=== PATIENT | female | born 1960 | race Caucasian/White ===

== ENCOUNTER 2017-10-18 10:08 | Day surgery (SDC) | payer OTHER ==
[~2017-10-18] VITALS: Ht 165.1 cm; Wt 79.0 kg
[~2017-10-18 10:08] MED LIST: BUSP5 PO; Cymbalta20 MG; DEXA4 PO; GABA300 PO; LIDOCAINE5 GM TP; LORA.5 PO; OMEP40CA12 PO; OXYC1TAB11; PROM25 PO; Senna S Tablet1 EACH PO
[2017-10-18] MEDS ORDERED: CBD OILS (10:22)
== END 2017-10-18 11:55 | disposition home or self-care (01) ==
LOC: ORSCSDS 10:08
PROVIDERS: Internal Medicine Gastroenterology
PROC: 0DJD8ZZ Inspection of Lower Intestinal Tract, Via Natural or Artificial Opening Endoscopic (ICD-10-PCS; principal; 2017-10-18 11:15)
DX: Z12.11 Encounter for screening for malignant neoplasm of colon (principal); K64.8 Other hemorrhoids; K57.30 Diverticulosis of large intestine without perforation or abscess without bleeding; I10 Essential (primary) hypertension; E78.5 Hyperlipidemia, unspecified; Z79.899 Other long term (current) drug therapy

== ENCOUNTER → 2018-09-27 | Outpatient (CLI) | payer OTHER ==
[~2018-09-27] MED LIST changes: +CBD OILS
[2018-09-27 12:03] LABS: Source, Urine Clean Catch
[2018-09-27 12:56] LABS: Bilirubin, Urine Neg (Neg); Blood, Urine 1+ (Neg); Glucose Qualitative, Urine Neg (Neg); Ketones, Urine Neg (Neg); Leukocyte Esterase, Urine Neg (Neg); Nitrite, Urine Neg (Neg); Protein, Urine Neg (Neg); Urobilinogen, Urine NORM (Normal)
[2018-09-27 13:46] LABS: Appearance, Urine Hazy (Clear); Color, Urine Yellow (P-Yellow)
[2018-09-27 13:48] LABS: Bacteria Rare /hpf; Red Blood Cells, Urine 0-2 /hpf (0-2); Squamous Epithelial Cells Rare /hpf (Few); White Blood Cells, Urine Not Seen /hpf (0-5)
== END | disposition home or self-care (01) ==
LOC: LAB SHORT 12:02 → LAB 12:02
PROVIDERS: Internal Medicine Hematology & Oncology
DX: C50.919 Malignant neoplasm of unspecified site of unspecified female breast (principal); C77.3 Secondary and unspecified malignant neoplasm of axilla and upper limb lymph nodes; C78.01 Secondary malignant neoplasm of right lung; C78.02 Secondary malignant neoplasm of left lung
CPT/HCPCS: 81001

== ENCOUNTER 2019-01-22 08:08 | Inpatient (IN) | payer OTHER ==
[~2019-01-22] VITALS: Ht 165.1 cm; Wt 88.2 kg
[2019-01-22] MEDS ORDERED: Amlodipine Bes2.5 MG PO (08:29)
[2019-01-22] MEDS ORDERED: ALBU90OI6 INH (08:29)
[2019-01-22] MEDS ORDERED: IBRANCE125 MG PO (08:29)
[2019-01-22] MEDS ORDERED: OMEPRAZOLE DR 20 MG (08:29)
[2019-01-22] MEDS ORDERED: VITAMIN C500 MG PO (08:30)
[2019-01-22] MEDS ORDERED: LO-DOSE ASPIRIN81 MG PO (08:30)
[2019-01-22] MEDS ORDERED: STOOL SOFTENER100 MG (08:31)
[2019-01-22] MEDS ORDERED: LETR2.5 PO (08:31)
[2019-01-22 09:30] LABS: Hematocrit 36.4 % (33.0-51.0); Hemoglobin 12.7 g/dL (11.5-16.0); Mean Corpuscular HGB 36.4 pg (26.0-34.0); Mean Corpuscular HGB Conc 34.9 g/dL (31.5-36.5); Mean Corpuscular Volume 104 fL (80-100); Mean Platelet Volume 8.6 fL (9.1-12.4); Platelet Count 250 K/mm3 (150-400); RDW Coefficient Variation 14.9 % (11.7-14.2); RDW Standard Deviation 56.9 fL (35.1-46.3); Red Blood Cell Count 3.49 M/mm3 (3.80-5.20); White Blood Cell Count 5.87 K/mm3 (4.00-11.30)
[2019-01-22 09:44] LABS: Alanine Aminotransfer (ALT/SGP 31 U/L (12-78); Albumin, Blood 3.6 g/dL (3.4-5.0); Albumin/Globulin Ratio 1.1 (0.8-1.8); Alk Phos 58 U/L (50-136); Anion Gap 8 mmol/L (6-16); Aspartate Aminotrans (AST/SGOT 32 U/L (12-37); Bilirubin, Total 1.1 mg/dL (0.1-1.0); Blood Urea Nitrogen 20 mg/dL (8-24); Bun/Creatinine Ratio 21.9 (12.0-20.0); CO2, Blood 26 mmol/L (21-32); Calcium, Blood 8.3 mg/dL (8.5-10.1); Chloride, Blood 101 mmol/L (98-108); Creatinine, Blood 0.92 mg/dL (0.40-1.00); Globulin, Blood 3.3 g/dL (2.2-4.0); Glomerular Filtration Rate >60 (60-); Glucose, Blood 145 mg/dL (70-99); Potassium, Blood 4.1 mmol/L (3.5-5.5); Sodium, Blood 135 mmol/L (136-145); Total Protein, Blood 6.9 g/dL (6.4-8.2)
[2019-01-22 09:53] LABS: BAND PERCENT MAN 5 % (0-8); BASOPHILS PERCENT MAN 0 % (0-2); EOSINOPHILS PERCENT MAN 0 % (0-6); LYMPHOCYTES ABSOLUTE MAN 0.46 K/mm3 (0.84-5.20); LYMPHOCYTES PERCENT MAN 8 % (21-46); MONOCYTES ABSOLUTE MAN 0.23 K/mm3 (0.16-1.47); MONOCYTES PERCENT MAN 4 % (4-13); NEUTROPHILS ABSOLUTE MAN 5.16 K/mm3 (1.96-9.15); SEG NEUTROPHILS PERCENT MAN 83 % (41-73); TOTAL CELLS COUNTED 100
[2019-01-22] MEDS ORDERED: DOCU100 PO (13:18)
[2019-01-22] MEDS ORDERED: Vitamin D2000 UNIT PO (13:19)
[2019-01-22] MEDS ORDERED: OMEPRAZOLE20 MG PO (13:19)
[2019-01-22] MEDS ORDERED: Norco 5-325 Ta1 EACH PO (13:20)
[2019-01-22] MEDS ORDERED: C Complex1000 MG PO (13:21)
--- NOTE | 2019-01-22 16:10 | NUR ---
SHIFT SUMMARY ED ADMIT THIS AFTERNOON. PATIENT DENIES PAIN, NAUSEA, AND SHORTNESS OF BREATH. MELANIE REPORTS HER ARM IS FEELING MUCH BETTER THAN THIS MORNING. PATIENT UP INDEPENDENT IN THE ROOM. FAMILY AT BEDSIDE MOST OF AFTERNOON. HOME CHEMO MEDICATIONS LABELED BY PHARMACY. CALL LIGHT IN REACH, WILL CONTINUE TO MONITOR.
--- NOTE | 2019-01-23 04:20 | NUR ---
NOC SHIFT SUMMARY PT PLEASANT AND COOPERATIVE WITH CARE. AAOX4. RESP EVEN AND UNLABORED. SHE HAD A FEVER EARLY IN SHIFT WHICH WAS TREATED WITH TYLENOL. STATES HER ARM IS FEELING BETTER. CURRENTLY SLEEEPING LIGHLTY AND APPEARS IN NO ACUTE DISTRESS. LAST TELE CHECK WAS SR IN THE 80S. WILL CONTINUE TO MONITOR.
[2019-01-23 04:55] LABS: Hematocrit 33.4 % (33.0-51.0); Hemoglobin 11.7 g/dL (11.5-16.0); Mean Corpuscular Volume 106 fL (80-100); Mean Platelet Volume 8.4 fL (9.1-12.4); Platelet Count 220 K/mm3 (150-400); RDW Coefficient Variation 14.6 % (11.7-14.2); RDW Standard Deviation 57.6 fL (35.1-46.3); Red Blood Cell Count 3.16 M/mm3 (3.80-5.20); White Blood Cell Count 4.01 K/mm3 (4.00-11.30)
[2019-01-23 05:16] LABS: Anion Gap 6 mmol/L (6-16); Blood Urea Nitrogen 12 mg/dL (8-24); Bun/Creatinine Ratio 14.4 (12.0-20.0); CO2, Blood 28 mmol/L (21-32); Chloride, Blood 104 mmol/L (98-108); Creatinine, Blood 0.83 mg/dL (0.40-1.00); Glomerular Filtration Rate >60 (60-); Glucose, Blood 136 mg/dL (70-99); Potassium, Blood 3.8 mmol/L (3.5-5.5); Sodium, Blood 138 mmol/L (136-145)
[2019-01-23 05:31] LABS: BASOPHILS ABSOLUTE MAN 0.04 K/mm3 (0.00-0.23); BASOPHILS PERCENT MAN 1 % (0-2); EOSINOPHILS PERCENT MAN 0 % (0-6); LYMPHOCYTES % ATYPICAL MANUAL 1 % (0-0); LYMPHOCYTES ABSOLUTE MAN 0.52 K/mm3 (0.84-5.20); LYMPHOCYTES PERCENT MAN 12 % (21-46); MONOCYTES PERCENT MAN 5 % (4-13); NEUTROPHILS ABSOLUTE MAN 3.24 K/mm3 (1.96-9.15); SEG NEUTROPHILS PERCENT MAN 81 % (41-73); TOTAL CELLS COUNTED 100
--- NOTE | 2019-01-23 18:27 | NUR ---
PT COOPERATIVE AND COMPLIANT. SLEPT OFF AND ON DURING THE DAY. MEDICATIONS TOLERATED WELL AND PT ATE EXCELLENTLY. PT GETS NAUSEADED WHEN RECIEVING IV FLUSHES, SNIFFS ALCOHOL WIPE TO TOLERATE FLUSH. PT IS DNR.
[2019-01-23 22:27] LABS: Vancomycin, Trough 8.7 ug/mL (5.0-10.0)
--- NOTE | 2019-01-24 04:11 | NUR ---
SHIFT SUMMARY: PT IS ALERT AND ORIENTED. PT IS CALM AND COOPERATIVE WITH CARE. PT CALLS APPROPRIATELY. PT IS INDEPENDENT IN THE ROOM. PT REPORTS HEADACHE IN THE WEAVER WIRE LOOM, GAVE PRN TYLENOL. PT REPORTS SOB IN THE MORNING, PUT HER ON 2 L O2 VIA NC. PT DENIES NAUSEA AND VOMITING. PT SLEPT MUCH OF THE NIGHT WHEN NOT DISTURBED. BED IN LOW POSITION, CALL LIGHT WITHIN REACH. WILL REPORT TO DAY NURSE.
[2019-01-24] MEDS ORDERED: Cymbalta20 MG PO (08:10)
[2019-01-24] MEDS ORDERED: Vsl#3 Capsule1 EACH PO (11:44)
[2019-01-24] MEDS ORDERED: DOXY100 PO (11:45)
--- NOTE | 2019-01-24 15:28 | NUR ---
DISCHARGE PT DISCHARGED TO HOME AT 1237. THIS RN EXPLAINED DISCHARGE INSTRUCTIONS AND MEDICATIONS WITH PT AND SHE REPORTS SHE UNDERSTANDS. IV REMOVED WITHOUT DIFFICULTY. PT'S MEDICATIONS FAXED TO [facility]. PT AMBULATORY TO PRIVATE VEHICLE. PT'S BELONGINGS WITH PT.
== END 2019-01-24 12:38 | disposition home or self-care (01) | DRG 872 ==
LOC: ER 08:08 → MEDS 11:03 → ENPENDDIS 01-24 09:42 → MEDS 01-24 12:38
PROVIDERS: Emergency Medicine; ADMIT Internal Medicine
DX: A41.9 Sepsis, unspecified organism (principal); L03.113 Cellulitis of right upper limb; I10 Essential (primary) hypertension; Z87.891 Personal history of nicotine dependence; R65.20 Severe sepsis without septic shock; Z66 Do not resuscitate; W55.03XA Scratched by cat, initial encounter; Z85.3 Personal history of malignant neoplasm of breast; Z85.89 Personal history of malignant neoplasm of other organs and systems
CPT/HCPCS: 36415; 80048; 80053; 80202; 83605; 85025; 93971; 96365; 96366; 96367; 99284-25; J0744; J1650; J2405; J3370; J7050; J7120

== ENCOUNTER → 2019-05-20 | Outpatient (CLI) | payer OTHER ==
[~2019-05-20] MED LIST changes: +ALBU90OI6 INH; +Amlodipine Bes2.5 MG PO; +C Complex1000 MG PO; +Cymbalta20 MG PO; +DOCU100 PO; +DOXY100 PO; +IBRANCE125 MG PO; +LETR2.5 PO; +LO-DOSE ASPIRIN81 MG PO; +Norco 5-325 Ta1 EACH PO; +OMEPRAZOLE DR 20 MG; +OMEPRAZOLE20 MG PO; +STOOL SOFTENER100 MG; +VITAMIN C500 MG PO; +Vitamin D2000 UNIT PO; +Vsl#3 Capsule1 EACH PO
[2019-05-20 12:03] LABS: Campylobacter Sp Not Detected (NOT DETECT); Cryptosporidium Not Detected (NOT DETECT); Cyclospora Cayetanensis Not Detected (NOT DETECT); E. Coli O157 Not Detected (NOT DETECT); Enteroaggregative E. coli-EAEC Not Detected (NOT DETECT); Enteropathogenic E. coli-EPEC Detected (NOT DETECT); Enterotoxigenic E. coli-ETEC Not Detected (NOT DETECT); Plesiomonas Shigelloides Not Detected (NOT DETECT); Salmonella Sp Not Detected (NOT DETECT); Shiga Toxin-prod E. coli-STEC Not Detected (NOT DETECT); Shigella/Enteroin E. coli-EIEC Not Detected (NOT DETECT); Vibrio Cholerae Not Detected (NOT DETECT); Vibrio Sp Not Detected (NOT DETECT); Yersinia Enterocolitica Not Detected (NOT DETECT)
[2019-05-20 12:04] LABS: Adenovirus F 40/41 Not Detected (NOT DETECT); Astrovirus Not Detected (NOT DETECT); Entamoeba Histolytica Not Detected (NOT DETECT); Giardia Lamblia Not Detected (NOT DETECT); Norovirus GI/GII Not Detected (NOT DETECT); Rotavirus A Not Detected (NOT DETECT); Sapovirus Not Detected (NOT DETECT)
== END | disposition home or self-care (01) ==
LOC: LAB SHORT 07:42 → LAB 07:42 → LAB FUT 05-16 09:55 → EDSTATUS 05-16 09:55
PROVIDERS: Internal Medicine
DX: C50.911 Malignant neoplasm of unspecified site of right female breast (principal); R19.7 Diarrhea, unspecified; Z17.0 Estrogen receptor positive status [ER+]
CPT/HCPCS: 0097U

== ENCOUNTER → 2020-02-26 | Outpatient (CLI) | payer OTHER ==
[2020-02-26 14:19] LABS: Source, Urine Clean Catch
[2020-02-26 15:51] LABS: Appearance, Urine Clear (Clear); Bilirubin, Urine Neg (Neg); Blood, Urine 3+ (Neg); Color, Urine Yellow (P-Yellow); Glucose Qualitative, Urine Neg (Neg); Ketones, Urine 1+ (Neg); Leukocyte Esterase, Urine Neg (Neg); Nitrite, Urine Neg (Neg); Protein, Urine 1+ (Neg); Specific Gravity, Urine 1.015 (1.003-1.022); Urobilinogen, Urine NORM (Normal)
[2020-02-26 15:58] LABS: Bacteria Few /hpf; Calcium Oxalate Crystals Rare /hpf; Hyaline Casts Rare /lpf (0-2); Mucus Light (0-Heavy); Squamous Epithelial Cells Rare /hpf (Few)
[2020-02-26 15:59] LABS: White Blood Cells, Urine 0-2 /hpf (0-5)
== END | disposition home or self-care (01) ==
LOC: LAB SHORT 14:18 → LAB 14:18 → LAB FUT 02-25 12:25
PROVIDERS: Internal Medicine
DX: N39.41 Urge incontinence (principal)
CPT/HCPCS: 81001

== ENCOUNTER 2020-11-23 09:29 | Emergency (ER) | payer OTHER ==
[~2020-11-23] VITALS: Ht 162.6 cm; Wt 80.7 kg
[2020-11-23 10:38] LABS: BASOPHILS ABSOLUTE AUTO 0.02 K/mm3 (0.00-0.23); BASOPHILS PERCENT AUTO 0 % (0-2); EOSINOPHILS ABSOLUTE AUTO 0.01 K/mm3 (0.00-0.68); EOSINOPHILS PERCENT AUTO 0 % (0-6); Hematocrit 43.2 % (33.0-51.0); Hemoglobin 15.3 g/dL (11.5-16.0); IMMATURE GRAN ABSOLUTE AUTO 0.03 K/mm3 (0.00-0.10); IMMATURE GRAN PERCENT AUTO 0 % (0-1); LYMPHOCYTES ABSOLUTE AUTO 1.14 K/mm3 (0.84-5.20); LYMPHOCYTES PERCENT AUTO 9 % (21-46); MONOCYTES ABSOLUTE AUTO 0.84 K/mm3 (0.16-1.47); MONOCYTES PERCENT AUTO 7 % (4-13); Mean Corpuscular HGB 31.9 pg (26.0-34.0); Mean Corpuscular HGB Conc 35.4 g/dL (31.5-36.5); Mean Corpuscular Volume 90 fL (80-100); Mean Platelet Volume 9.3 fL (9.1-12.4); NEUTROPHILS ABSOLUTE AUTO 10.38 K/mm3 (1.96-9.15); NEUTROPHILS PERCENT AUTO 84 % (41-73); Platelet Count 328 K/mm3 (150-400); RDW Coefficient Variation 12.4 % (11.7-14.2); RDW Standard Deviation 40.8 fL (35.1-46.3); Red Blood Cell Count 4.79 M/mm3 (3.80-5.20); White Blood Cell Count 12.42 K/mm3 (4.00-11.30)
[2020-11-23 10:59] LABS: Alanine Aminotransfer (ALT/SGP 31 U/L (12-78); Albumin, Blood 3.8 g/dL (3.4-5.0); Alk Phos 75 U/L (50-136); Anion Gap 8 mmol/L (6-16); Aspartate Aminotrans (AST/SGOT 35 U/L (12-37); Bilirubin, Total 0.7 mg/dL (0.1-1.0); Blood Urea Nitrogen 11 mg/dL (8-24); Bun/Creatinine Ratio 16.4 (12.0-20.0); CO2, Blood 26 mmol/L (21-32); Calcium, Blood 9.1 mg/dL (8.5-10.1); Chloride, Blood 106 mmol/L (98-108); Creatinine, Blood 0.67 mg/dL (0.40-1.00); Globulin, Blood 3.9 g/dL (2.2-4.0); Glomerular Filtration Rate >60 (60-); Glucose, Blood 131 mg/dL (70-99); Potassium, Blood 3.5 mmol/L (3.5-5.5); Sodium, Blood 140 mmol/L (136-145); Total Protein, Blood 7.7 g/dL (6.4-8.2)
[2020-11-23] MEDS ORDERED: METR500 PO (12:30)
[2020-11-23] MEDS ORDERED: CIPR500 PO (12:30)
== END 2020-11-23 12:50 | disposition home or self-care (01) ==
LOC: ER 09:29
PROVIDERS: Emergency Medicine
DX: K52.9 Noninfective gastroenteritis and colitis, unspecified (principal); Z79.899 Other long term (current) drug therapy
CPT/HCPCS: 36415; 74177; 80053; 85025; 86850; 86900; 86901; 93005; 93010; 96374-59; 99284-25; J2405; Q9967